=== PATIENT | male | born 1930 | race Caucasian/White ===

== ENCOUNTER → 2017-01-05 10:28 | Outpatient (CLI) | payer MEDICARE, BC | END | disposition home or self-care (01) | LOC: D.CT 10:28 | DX: R06.00 Dyspnea, unspecified (principal) ==

== ENCOUNTER → 2017-02-13 10:38 | Outpatient (CLI) | payer MEDICARE, BC ==
[2017-02-14 09:13] LABS: IMMUNOGLOBULIN E 1446 IU/mL (0-100)
== END | disposition home or self-care (01) ==
LOC: D.RT 10:38
PROVIDERS: Internal Medicine Pulmonary Disease
DX: J44.9 Chronic obstructive pulmonary disease, unspecified (principal)

== ENCOUNTER 2017-07-15 16:17 | Emergency (ER) | payer MEDICARE, BC | END 2017-07-15 19:25 | disposition home or self-care (01) | LOC: D.ER 16:17 | DX: J44.1 Chronic obstructive pulmonary disease with (acute) exacerbation (principal); I10 Essential (primary) hypertension; J45.909 Unspecified asthma, uncomplicated ==

== ENCOUNTER 2017-07-21 14:16 | Inpatient (IN) | payer MEDICARE, BC ==
[~2017-07-21] VITALS: Ht 180.3 cm; Wt 103.3 kg
[2017-07-21 15:28] LABS: BASOPHILS 0 % (0-2); EOSINOPHILS 0 % (0-7); HEMATOCRIT 45.6 % (42.0-54.0); HEMOGLOBIN 16.3 g/dL (13.5-17.5); IMMATURE GRANULOCYTES 0.5 % (0-5); LYMPHOCYTES 4.7 % (15-50); MCH 34.3 pg (26.0-34.0); MCHC 35.7 g/dL (31.0-37.0); MEAN PLATELET VOLUME 10.3 fL (7.4-10.4); MONOCYTES 1.6 % (2-11); NEUTROPHILS 93.2 % (40-80); PLATELET COUNT 177 10x3/uL (130-400); RBC 4.75 10x6/uL (4.20-6.10); RDW 13.6 % (11.5-14.5); WBC 17.6 10x3/uL (4.8-10.8)
[2017-07-21 16:16] LABS: PRO BNP 368 pg/mL (0-450); TROPONIN-I < 0.017 ng/mL (0.000-0.060)
[2017-07-21 16:19] LABS: ALBUMIN 3.5 g/dL (3.4-5.0); ANION GAP 20.9 mmol/L (8-16); BILIRUBIN - TOTAL 0.8 mg/dL (0.2-1.3); CALCIUM 8.6 mg/dL (8.5-10.1); CARBON DIOXIDE 17.8 mmol/L (21.0-32.0); CREATININE - SERUM 1.2 mg/dL (0.6-1.3); POTASSIUM - SERUM 4.7 mmol/L (3.5-5.1); PROTEIN - SERUM 7.2 g/dL (6.4-8.2)
[2017-07-21 18:21] LABS: APTT 27.4 SECONDS (22.8-39.4)
[2017-07-21 18:25] LABS: INR 1.03 (0.85-1.17); PROTIME 13.3 SECONDS (11.6-15.0)
[2017-07-21 20:00] VITALS: BP 124/81
[2017-07-21 23:03] VITALS: BP 124/81; BMI 31.4
[2017-07-21] MEDS ORDERED: ELIQUIS2.5 MG PO (23:44)
[2017-07-21] MEDS ORDERED: ZYLOPRIM100 MG PO (23:45)
[2017-07-21] MEDS ORDERED: LOPRESSOR25 MG PO (23:45)
[2017-07-21] MEDS ORDERED: BREO ELLIPTA 21 EACH (23:46)
[2017-07-21] MEDS ORDERED: AZELASTINE137 MCG/0. NASAL (23:48)
[2017-07-21] MEDS ORDERED: SINGULAIR10 MG PO (23:49)
[2017-07-21] MEDS ORDERED: LOSARTAN POTASS25 MG PO (23:50)
[2017-07-22 04:00] VITALS: BP 130/82
--- NOTE | 2017-07-22 07:53 | NUR ---
AMBULATED TO RESTROOM WITOUT DIFFICULTY. OXYGEN ON 2L VIA NC. ASSESSMENT PERFORMED PER FLOWSHEET. CALL LIGHT IN REACH, WILL CONTINUE WITH PLAN OF CARE.
[2017-07-22 08:21] VITALS: BP 131/73
[2017-07-22] MEDS ORDERED: PROAIR HFA8.5 GM INH (09:50)
[2017-07-22] MEDS ORDERED: IPRAT-ALBUT 0.5-3 ML UPD (09:50)
--- NOTE | 2017-07-22 11:30 | NUR ---
PLACED IN DROPLET ISOLATION PER ДМИТРИЙ, INFECTIOUS CONTROL RN.
[2017-07-22 12:00] VITALS: BP 115/70
--- NOTE | 2017-07-22 12:28 | NUR ---
TB SKIN TEST ADMINISTERED PER ORDER TO RIGHT FOREARM. BLEB CIRCLED AND BANDAID APPLIED LOOSELY TO SITE. IN DROPLET ISOLATION UNTIL NEGATIVE PRESSURE ROOM CAN BE OBTAINED.
--- NOTE | 2017-07-22 14:56 | NUR ---
TRANSFERRED TO ROOM 2240 AND PLACED IN NEGATIVE PRESSURE AT THIS TIME. ISOLATION PROCEDURES EXPLAINED TO PT AND HIS FAMILY MEMBER. VERBALIZED UNDERSTANDING.
[2017-07-22 15:20] VITALS: Ht 180.3 cm; Wt 103.3 kg
[2017-07-22 16:31] VITALS: BP 105/61
--- NOTE | 2017-07-22 17:00 | NUR ---
DAUGHTER EDUCATED ON IMPORTANCE OF FOLLOWING ISOLATION PROTOCOL, BUT REFUSES TO WEAR PROPER ATTIRE.
[2017-07-22 20:00] VITALS: BP 132/86
--- NOTE | 2017-07-22 20:00 | NUR ---
AWAKE,ALERT,NO COMPLIANTS VOICED.UP AD JEMMA TO BATHROOM. IV TO RIGHT AC INTACT WITHOUT REDNESS OR EDEMA NOTED.O2 @ 2L PER NC ON. NO DISTRESS NOTED. SR UP X 2. CL IN REACH.
[2017-07-23] VITALS: BP 139/79
--- NOTE | 2017-07-23 01:52 | NUR ---
EYES CLOSED. RESP EVEN AND UNALBORED. CL IN REACH.
[2017-07-23 04:00] VITALS: BP 133/89
[2017-07-23 04:40] LABS: BASOPHILS 0 % (0-2); EOSINOPHILS 0 % (0-7); HEMATOCRIT 41.6 % (42.0-54.0); HEMOGLOBIN 14.5 g/dL (13.5-17.5); IMMATURE GRANULOCYTES 0.2 % (0-5); MCH 33.6 pg (26.0-34.0); MCHC 34.9 g/dL (31.0-37.0); MCV 96.3 fL (80.0-100.0); MEAN PLATELET VOLUME 10.4 fL (7.4-10.4); MONOCYTES 2.1 % (2-11); NEUTROPHILS 90.7 % (40-80); PLATELET COUNT 156 10x3/uL (130-400); RBC 4.32 10x6/uL (4.20-6.10); RDW 13.7 % (11.5-14.5)
[2017-07-23 04:44] LABS: WBC 8.9 10x3/uL (4.8-10.8)
[2017-07-23 05:04] LABS: ANION GAP 15.4 mmol/L (8-16); BILIRUBIN - TOTAL 0.5 mg/dL (0.2-1.3); CALCIUM 8.6 mg/dL (8.5-10.1); CARBON DIOXIDE 22.2 mmol/L (21.0-32.0); CREATININE - SERUM 1.4 mg/dL (0.6-1.3); MAGNESIUM - SERUM 2.1 mg/dL (1.8-2.4); POTASSIUM - SERUM 4.6 mmol/L (3.5-5.1); PROTEIN - SERUM 6.6 g/dL (6.4-8.2)
--- NOTE | 2017-07-23 06:27 | NUR ---
AROUSES EASILY TO VERBAL STIMULI. NO COMPLAINTS VOICED. CL IN REACH
--- NOTE | 2017-07-23 07:09 | NUR ---
PT AWAKE BILATERAL EXPIRATORY WHEEZES AND CRACKLES TO ALL REGIONS OF LUNGS. SPO2 94. CURRENTLY ON 2 L NC. PT APPEARS TO BE IN NO RESPIRATORY DISTRESS. SPUTUM SAMPLE COLLECETED AND SENT TO THE LAB.
--- NOTE | 2017-07-23 07:49 | NUR ---
PT AWAKE AND ALERT. RESTING ON HIS BACK. REPORTS NO PAIN AT THIS TIME. ON 2L O2 VIA NC. LEFT FOREARM PERIPHERAL IV INFUSING NS AT 50ML/HR. NO REDNESS OR TENDERNESS NOTED AT IV SITE. PT WEARING GLASSES. SIDE RAIL UP X 2. URINAL WITHIN REACH. DENIES OTHER NEEDS AT THIS TIME.
[2017-07-23 08:08] VITALS: BP 141/67
--- NOTE | 2017-07-23 11:37 | NUR ---
PT REPORTS SOB. PT IN BED COUGHING AND HAVING DIFFICULTY BREATHING. O2 SAT 99% 2L NC. HEART RATE IN 100S. REPORTS NO PAIN. BLOOD IN SPUTUM NOTED. SPUTUM CULTURE COLLECTED. DR. BURGOS CAME IN THE ROOM. ORDERE CARDIAC ENZYME LAB AND EKG. WILL CONTINUE TO MONITOR.
--- NOTE | 2017-07-23 11:40 | NUR ---
PT EXPIERINCED CHEST TIGHTNESS AND EXPIRATORY WHEEZE TO THE LEFT APEX OF LUNG. ADMINISTERED RACEMIC EPINEPHRINE AND ATROVENT PER ORDER. SP02 97 ON 2L NC. PT STATES HE FEELS RELIEF DURING ADMINISTRATION. EXPECTORATE BLOOD TINGED COLLECTED DURING TX.
[2017-07-23 12:00] VITALS: BP 118/78
[2017-07-23 12:58] LABS: CKMB 1.1 U/L (0.0-3.6); CREATINE KINASE 50 UL (21-232)
[2017-07-23 12:59] LABS: TROPONIN-I < 0.017 ng/mL (0.000-0.060)
--- NOTE | 2017-07-23 14:02 | NUR ---
PT IS DOING A LOT BETTER. NO SOB NOTED AT THIS TIME. RESTING QUIETLY IN HIS BED. STATES THAT HE GOT UP TO THE BATHROOM AND BRUSH HIS TEETH. DENIES PAIN AT THIS TIME. NO OTHER NEEDS. WILL CONTINUE TO MONITOR.
[2017-07-23 15:05] VITALS: BP 113/61
--- NOTE | 2017-07-23 18:00 | NUR ---
PT RESTING COMFORTABLY. NO SOB NOTED AT THIS TIME.
[2017-07-23 18:11] LABS: ACID FAST SMEAR Negative (()); AFB SPECIMEN PROCESSING Concentration (())
[2017-07-23 19:08] LABS: CKMB 0.9 U/L (0.0-3.6); CREATINE KINASE 48 UL (21-232)
[2017-07-23 19:09] LABS: TROPONIN-I < 0.017 ng/mL (0.000-0.060)
[2017-07-23 20:00] VITALS: BP 134/90
[2017-07-24] VITALS: BP 138/88
[2017-07-24 00:07] LABS: CKMB 0.8 U/L (0.0-3.6); CREATINE KINASE 46 UL (21-232)
[2017-07-24 00:13] LABS: TROPONIN-I < 0.017 ng/mL (0.000-0.060)
[2017-07-24 04:00] VITALS: BP 155/99
[2017-07-24 08:05] VITALS: BP 145/82
--- NOTE | 2017-07-24 09:38 | NUR ---
Patient Name: KD MARCIAL Admission Status: Elective Accout number: [id number] Admission Date: 07-21-2017 : 1930 Admission Diagnosis: Attending: Inderjit Robledo Current LOS: 3 Anticipated DC Date: 07-28-2017 Planned Disposition: Home with Home Health Primary Insurance: MEDICARE A & B Discharge Planning Comments: CM MET WITH PATIENT AND DAUGHTER (ABI) REGARDING D/C NEEDS AND PLANS. PATIENTS DAUGHTER STATED SHE WILL DRIVE HIM HOME AT DISCHARGE. PATIENT HAS 1 STEP TO ENTER HOME AND 2 STEPS W/RAILS INSIDE. PATIENT IS INDEPENDENT WITH HIS CARE AND HAS A WALKER, WHEELCHAIR, AND CANE (USES). PATIENTS PCP IS DR. ROBLEDO AND PHARMACY IS [facility]. PATIENTS DAUGHTER SIGNED THE [facility] FOR [facility] IF NEEDED AT DISCHARGE. DAUGHTER AND PATIENT WANTS TO SEE IF DR. ROBLEDO WANTS HIM TO HAVE HOME HEALTH. PCP DR. MEENA KRAUSE IN [facility]. [phone] ABI (DAUGHTER) [phone] Preparation Plant Repairer: Angelique Gage Is the patient Alert and Oriented? Yes 0 * How many steps to enter\exit or inside your home? 3 0 * PCP DR. ROBLEDO 0 * Pharmacy [facility] 0 * Preadmission Environment Home Alone 0 * ADLs Independent 0 * Equipment Cane Walker Wheelchair 0 * Other Equipment USES CANE THE MOST 0 * List name and contact numbers for known caregivers / representatives who currently or will assist patient after discharge: ABI (DAUGHTER) [phone] 0 * Community resources currently utilized None 0 * Additional services required to return to the preadmission environment? Yes 0 * Can the patient safely return to the preadmission environment? Yes 0 * Has this patient been hospitalized within the prior 30 days at any hospital? No 0 Grand Total: 0
[2017-07-24 12:28] VITALS: BP 124/67
--- NOTE | 2017-07-24 12:46 | NUR ---
PERIPHERAL IV ON LEFT AC DICONTINUED. REMOVED WITH CATHETER INTACT. NEW 20 GAUGE IV STARTED ON LEFT FOREARM X 1 ATTEMP. PT TOLERATED WELL. PT EATING LUNCH AT THIS TIME. NO SOB NOTED. NO OTHER NEEDS AT THIS TIME.
[2017-07-24 13:16] LABS: FUNGUS STAIN Final report (())
--- NOTE | 2017-07-24 14:42 | NUR ---
NUTRITION F/U CHART REVIEWED, PT VISIT. TOLERATING AHA DIET WITH 100% INTAKE LUNCH. WILL CONTINUE TO PROVIDE DIET, MONITOR INTAKE. RD FOLLOWING
[2017-07-24 16:00] VITALS: BP 122/67
--- NOTE | 2017-07-24 18:20 | NUR ---
PT RESTING COMFORTABLY IN BED. REPORTS NO PAIN. NO SOB NOTED AT THIS TIME.
[2017-07-24 19:11] LABS: ACID FAST SMEAR Negative (()); AFB SPECIMEN PROCESSING Concentration (())
[2017-07-24 20:00] VITALS: BP 121/65
--- NOTE | 2017-07-24 20:15 | NUR ---
PATIENT RESTING IN BED AND DENIES NEEDS AT THIS TIME. ADMINSITERED MEDS PER ORDERS AND COMPLETED ASSESSMENT. BED IN LOWEST POSITION AND CALL LIGHT WITHIN REACH. ENCOURAGED THE PATIENT TO CALL IF HE HAS NEEDS.
[2017-07-25 00:55] VITALS: BP 143/72
[2017-07-25 03:52] LABS: BASOPHILS 0 % (0-2); EOSINOPHILS 0 % (0-7); HEMATOCRIT 39.2 % (42.0-54.0); HEMOGLOBIN 13.6 g/dL (13.5-17.5); IMMATURE GRANULOCYTES 0.4 % (0-5); LYMPHOCYTES 5.1 % (15-50); MCH 33.4 pg (26.0-34.0); MCHC 34.7 g/dL (31.0-37.0); MCV 96.3 fL (80.0-100.0); MEAN PLATELET VOLUME 10.3 fL (7.4-10.4); MONOCYTES 5.5 % (2-11); PLATELET COUNT 156 10x3/uL (130-400); RBC 4.07 10x6/uL (4.20-6.10); RDW 13.8 % (11.5-14.5); WBC 10.6 10x3/uL (4.8-10.8)
[2017-07-25 04:09] VITALS: BP 137/69
[2017-07-25 04:18] LABS: ANION GAP 12.7 mmol/L (8-16); CALCIUM 8.3 mg/dL (8.5-10.1); CARBON DIOXIDE 23.1 mmol/L (21.0-32.0); CREATININE - SERUM 1.2 mg/dL (0.6-1.3); POTASSIUM - SERUM 3.8 mmol/L (3.5-5.1)
--- NOTE | 2017-07-25 07:30 | NUR ---
RECEIVED REPORT FROM [employer]I LIFT MECHANIC NURSE. WALKING ROUNDS PREFORMED. ASSESSMENT PER FLOW SHEET. PT SITTING UP ON SIDE OF BED. REPORTS NO NEEDS AT THIS TIME. CALL LIGHT AT SIDE. PT IN AIRBORN ISOLATION. ALL PRECAUTIONS ABIDED BY.
--- NOTE | 2017-07-25 07:45 | NUR ---
PT ASSESSMENT COMPLETE AWAKE AND ALERT ORINTED X 3 LUNGS WITH NOTED WHEEZING BILATERALLY COUGH WITH POSITIVE SPUTUM PRODUCTION. CALL LIGHT IN REACH SEE FLOWSHEET FOR COMPLETE ASSESSMENT. REMAINS IN AIRBORNE ISOLATION FOR POSSIBLE TB.
[2017-07-25 08:10] VITALS: BP 149/73
--- NOTE | 2017-07-25 11:30 | NUR ---
PT COMPLAINS OF TV NOT WORKING CALL PLACED FOR MAINTANCE TO FIX NON WORKING TV.
[2017-07-25 12:11] LABS: HISTOPLASMA GAL MANNAN AG SER 0.12 ng/mL (0.00-0.49)
[2017-07-25 12:40] VITALS: BP 136/70
[2017-07-25 15:57] VITALS: BP 122/69
[2017-07-25 16:09] LABS: CRYPTOCOCCUS AG - SERUM Negative (Negative)
--- NOTE | 2017-07-25 17:00 | NUR ---
REPORT CALLED TO DANIEL ON [facility] FOR TRANSFER TO ROOM 210
--- NOTE | 2017-07-25 17:15 | NUR ---
Pt received from [facility] 6Scan on droplet isolation pending continued results of TB testing. Family member at bedside, nurse introduced self and provided requested items such as ice water, empty cup to spit in, etc. Spoke with [employer] who will set up for shower, take urinal. Pt is alert and oriented, very [place], friendly and coopetative. Reviewed isolation policy and procedure with family memeber. Pt denies pain, denies needs at this time, is able to demonstrate proper use of call light.
--- NOTE | 2017-07-25 17:36 | NUR ---
PT TRANSFERED TO 2101 PER BED PER ORDER GUITAR MAKER HAND FOR NON WORKING TV. FAMILY AT SIDE. PT EXCITED ABOUT HAVING WORKING TV.
[2017-07-25 18:08] LABS: ACID FAST SMEAR Negative (()); AFB SPECIMEN PROCESSING Concentration (())
[2017-07-25 19:00] VITALS: BP 139/71
[2017-07-26] VITALS: BP 140/71
[2017-07-26 04:00] VITALS: BP 135/76
--- NOTE | 2017-07-26 08:13 | NUR ---
Pt alert and oriented with no c/o pain. Very [place] with bilat hearing aids present. Continues contact ISO until receiving new orders as sputum cultures are negative. Large container of ice water taken to pt upon AM assessment as previously requested. Continues controlled a-fib on moniter. Pt is ambulatory in room (up ad caleb) and has small amt of blood-tinged sputum in cup on table. Call light is in reach, and pt is able to make needs known, states "I've felt really good since I came over here yesterday and even got that shower. Thank you."
[2017-07-26 08:58] VITALS: BP 141/85
--- NOTE | 2017-07-26 10:41 | NUR ---
Pt sitting with family member, Dr. Hutchison present in room, remains on ISO until further orders. Pt has no current c/o pain and no s/s of other distress, denies needs at this time. Family member states "He looks and feels so much better today. Thank you."
[2017-07-26 11:53] VITALS: BP 133/73
--- NOTE | 2017-07-26 12:48 | NUR ---
Peripheral IV to left forearm near wrist leaking; new IV started to same arm several inches above x1 attempt with 22g. Old IV removed with cath tip intact, bleeding controlled. No c/o pain, and no s/s distress. Family remains at bedside, and pt remains on ISO.
--- NOTE | 2017-07-26 14:19 | NUR ---
Pt sleeping, awoke when nurse entered room to administer meds, IV patent, antibiotics infused without difficulty. No c/o pain, no distress. Family remains at bedside, remains on isolation at this time. Call light in reach, bed in low position.
--- NOTE | 2017-07-26 14:54 | NUR ---
PATIENT REMAINS IN ISOLATION. DENIES NEEDS AT THIS TIME. NO DISTRESS.
[2017-07-26 16:50] VITALS: BP 116/75
--- NOTE | 2017-07-26 17:00 | NUR ---
Pt sitting in chair beside bed-dinner tray set up. Family member has left. Pt is alert and oriented with no c/o pain, no s/s distress.
--- NOTE | 2017-07-26 19:41 | NUR ---
RECEIVED REPORT, WILL ASSUME CARE OF PT, PT DENIES ANY NEEDS AT THIS TIME, BED IS LOW, SRX2, WILL CONTINUE PLAN OF CARE
[2017-07-26 20:00] VITALS: BP 134/78
[2017-07-27] VITALS: BP 165/97
--- NOTE | 2017-07-27 00:06 | NUR ---
CALL LIGHT IN REACH, WILL CONTINUE WITH PLAN OF CARE.
[2017-07-27 04:00] VITALS: BP 135/93
--- NOTE | 2017-07-27 04:04 | NUR ---
ASSESSMENT COMPLETE, SEE FLOWSHEET, PT DENIES ANY NEEDS, BED IS LOW, SRX2, CALL LIGHT IN REACH, WILL CONTINUE PLAN OF CARE
[2017-07-27 04:57] LABS: BASOPHILS 0 % (0-2); EOSINOPHILS 0 % (0-7); HEMATOCRIT 39.7 % (42.0-54.0); HEMOGLOBIN 13.8 g/dL (13.5-17.5); IMMATURE GRANULOCYTES 0.6 % (0-5); LYMPHOCYTES 9.8 % (15-50); MCH 33.3 pg (26.0-34.0); MCHC 34.8 g/dL (31.0-37.0); MCV 95.9 fL (80.0-100.0); MEAN PLATELET VOLUME 10.9 fL (7.4-10.4); MONOCYTES 6.7 % (2-11); NEUTROPHILS 82.9 % (40-80); PLATELET COUNT 150 10x3/uL (130-400); RBC 4.14 10x6/uL (4.20-6.10); RDW 14.2 % (11.5-14.5); WBC 8.3 10x3/uL (4.8-10.8)
[2017-07-27 05:17] LABS: ALBUMIN 2.9 g/dL (3.4-5.0); BILIRUBIN - TOTAL 0.5 mg/dL (0.2-1.3); CALCIUM 8.6 mg/dL (8.5-10.1); CARBON DIOXIDE 24.7 mmol/L (21.0-32.0); CREATININE - SERUM 1.3 mg/dL (0.6-1.3); POTASSIUM - SERUM 3.7 mmol/L (3.5-5.1); PROTEIN - SERUM 6.1 g/dL (6.4-8.2)
[2017-07-27 08:00] VITALS: BP 137/80
--- NOTE | 2017-07-27 08:38 | NUR ---
PT IS ON DROBLET ISOLATION. HARD OF HEARING. TELEMERTY SHOWS CAF AT 98. LEFT ARM FOREARM SL. UP IN BEDSIDE CHAIR. DENIES ANY NEEDS.CALL LIGHT IN REACH WITH SR UP.WILL MONITOR
--- NOTE | 2017-07-27 09:51 | NUR ---
IN DROPLET ISOLATION AT PRESENT TIME. DENIES NEEDS OR SHORTNESS OF BREATH. WAS UP TO CHAIR FOR BREAKFAST. WILL CPOC.
[2017-07-27 12:00] VITALS: BP 128/65
[2017-07-27 12:09] LABS: FUNGUS STAIN Final report (())
[2017-07-27 12:09] LABS: FUNGUS STAIN Final report (())
[2017-07-27 16:00] VITALS: BP 137/79
--- NOTE | 2017-07-27 18:30 | NUR ---
UP IN BEDSIDE CHAIR. DENIES ANY NEEDS. TELEMERTRY SHOWS CAF. WILL MONITOR
--- NOTE | 2017-07-27 19:20 | NUR ---
RECEIVED REPORT, WILL ASSUME CARE OF PT, PT IS ALERT/ORINTATED, DENIES ANY NEEDS, BED IS LOW, SRX2, CALL LIGHT IN REACH, WILL CONTINUE PLAN OF CARE
[2017-07-27 21:15] VITALS: BP 137/70
--- NOTE | 2017-07-28 00:10 | NUR ---
LEAD MANUFACTURING ENGINEER AT BED SIDE TO OBTAIN VITALS.
--- NOTE | 2017-07-28 01:22 | NUR ---
PT SLEEPING, NO DISTRESS NOTICED, BED IS LOW, SRX2, CALL LIGHT IN REACH, WILL CONTINUE PLAN OF CARE
[2017-07-28 01:29] VITALS: BP 127/85
--- NOTE | 2017-07-28 03:08 | NUR ---
PT RESTING IN BED WITH NO DISTRESS. RESPS EVEN/NONLABORED. MONITOR AND CPOC. CALL LIGHT IN REACH. BED LOW.
[2017-07-28 04:27] LABS: BASOPHILS 0 % (0-2); EOSINOPHILS 0.1 % (0-7); HEMATOCRIT 39.5 % (42.0-54.0); HEMOGLOBIN 13.9 g/dL (13.5-17.5); IMMATURE GRANULOCYTES 0.7 % (0-5); LYMPHOCYTES 11.7 % (15-50); MCH 33.6 pg (26.0-34.0); MCHC 35.2 g/dL (31.0-37.0); MCV 95.4 fL (80.0-100.0); MEAN PLATELET VOLUME 10.7 fL (7.4-10.4); MONOCYTES 6.4 % (2-11); NEUTROPHILS 81.1 % (40-80); PLATELET COUNT 145 10x3/uL (130-400); RBC 4.14 10x6/uL (4.20-6.10); RDW 14.1 % (11.5-14.5); WBC 7.7 10x3/uL (4.8-10.8)
[2017-07-28 04:30] VITALS: BP 139/104
[2017-07-28 04:39] LABS: ALBUMIN 2.8 g/dL (3.4-5.0); ANION GAP 12.3 mmol/L (8-16); BILIRUBIN - TOTAL 0.62 mg/dL (0.2-1.3); CALCIUM 8.1 mg/dL (8.5-10.1); CARBON DIOXIDE 24.8 mmol/L (21.0-32.0); CREATININE - SERUM 1.3 mg/dL (0.6-1.3); POTASSIUM - SERUM 4.1 mmol/L (3.5-5.1); PROTEIN - SERUM 6.1 g/dL (6.4-8.2)
--- NOTE | 2017-07-28 07:00 | NUR ---
RECEIVED REPORT. ASSUMED CARE OF PATIENT. CALL LIGHT WITHIN REACH. PATIENT SITTING IN CHAIR AT BEDSIDE. DENIES NEEDS. DENIES PAIN. NO DISTRESS. RESP EVEN AND UNLABORED.
[2017-07-28 08:00] VITALS: BP 142/89
--- NOTE | 2017-07-28 10:00 | NUR ---
PATIENT REMOVED FROM ISOLATION AT THIS TIME.
--- NOTE | 2017-07-28 10:52 | NUR ---
Nutrition Follow Up: Pt is eating 96% meal avg on an AHA diet. +BM 07/27/17. Wt stable. Labs reviewed. Meds noted including Prednisone. Rec continue current diet. RD following.
[2017-07-28 12:00] VITALS: BP 116/69
--- NOTE | 2017-07-28 13:45 | NUR ---
PATIENT LEFT UNIT VIA WHEELCHAIR FOR CT OF CHEST. NO DISTRESS UPON LEAVING UNIT.
--- NOTE | 2017-07-28 14:15 | NUR ---
PATIENT RETURNED TO UNIT VIA WHEELCHAIR FROM CT. NO DISTRESS. ASSISTED PATIENT TO CHAIR AT BEDSIDE.
[2017-07-28 16:00] VITALS: BP 124/68
--- NOTE | 2017-07-28 18:24 | NUR ---
PATIENT LYING IN BED, RESP EVEN AND UNLABORED. DENIES NEEDS. CALL LIGHT WITHIN REACH. NO DISTRESS.
[2017-07-28 19:00] VITALS: BP 148/84
--- NOTE | 2017-07-28 20:42 | NUR ---
PT RESTING COMFORTABLY, EASILY ROUSABLE TO VERBAL STIMULI, DENIES ANY NEEDS. CONTINUE TO MONITOR PT CLOSELY. BED LOW, CALL LIGHT IN REACH, SIDE RAILS X 2, HOB 20 DEGREES. PT DOES HAVE A SMALL AMOUNT OF BLOODY SPUTUM IN A CUP AT BEDSIDE, BUT STATES IT IS INFREQUENT AT THIS TIME.
[2017-07-29 00:46] VITALS: BP 135/81
--- NOTE | 2017-07-29 03:54 | NUR ---
PT LYING ON RIGHT SIDE, RESTING COMFORTABLY, EASILY ROUSABLE TO VERBAL STIMULI. CONTINUE TO MONITOR CLOSELY. BED LOW, CALL LIGHT IN REACH, SIDE RAILS X 2, HOB FLAT.
[2017-07-29 04:23] LABS: BASOPHILS 0 % (0-2); EOSINOPHILS 0.3 % (0-7); HEMATOCRIT 40.3 % (42.0-54.0); IMMATURE GRANULOCYTES 0.8 % (0-5); LYMPHOCYTES 12.9 % (15-50); MCH 33.5 pg (26.0-34.0); MCHC 34.7 g/dL (31.0-37.0); MCV 96.4 fL (80.0-100.0); MEAN PLATELET VOLUME 10.4 fL (7.4-10.4); MONOCYTES 6.8 % (2-11); NEUTROPHILS 79.2 % (40-80); PLATELET COUNT 136 10x3/uL (130-400); RBC 4.18 10x6/uL (4.20-6.10); RDW 14.4 % (11.5-14.5); WBC 7.5 10x3/uL (4.8-10.8)
[2017-07-29 05:04] LABS: CARBON DIOXIDE 26.9 mmol/L (21.0-32.0); CREATININE - SERUM 1.3 mg/dL (0.6-1.3)
[2017-07-29 05:12] VITALS: BP 152/99
[2017-07-29 06:16] LABS: ANION GAP 9.9 mmol/L (8-16); POTASSIUM - SERUM 3.8 mmol/L (3.5-5.1)
--- NOTE | 2017-07-29 07:42 | NUR ---
ASSESSMENT DONE. DENIES ANY NEEDS AT THIS TIME.
[2017-07-29 08:32] VITALS: BP 105/71
[2017-07-29 11:15] LABS: FUNGUS MYCOLOGY CULTURE Preliminary report (())
[2017-07-29] MEDS ORDERED: CLEOCIN HCL150 MG PO (11:37)
[2017-07-29] MEDS ORDERED: PROMETHAZINE W473 M1 PO (11:38)
[2017-07-29] MEDS ORDERED: FLORAJEN3 CAPS460 MG PO (11:38)
[2017-07-29] MEDS ORDERED: MUCINEX DM ER1 EAC1 PO (11:38)
[2017-07-29] MEDS ORDERED: BENZONATATE200 MG PO (11:38)
[2017-07-29] MEDS ORDERED: PREDNISONE20 MG PO (11:40)
--- NOTE | 2017-07-29 11:59 | NUR ---
PT SITTING UP IN BED RESTING QUIETLY WATCHING TV. PT DENIES ANY CURRENT PAIN OR NEEDS AT THIS TIME. CL IN REACH. WILL CTM.
[2017-07-29 12:34] VITALS: BP 132/82
--- NOTE | 2017-07-29 13:30 | NUR ---
UP IN BED VISITING WITH FAMILY - DENIES ANY NEEDS AT THIS TIME
--- NOTE | 2017-07-29 15:19 | NUR ---
Patient Name: KD MARCIAL Encounter No: [id number] : 1930 Primary Insurance: MEDICARE A & B Anticipated DC Date: 07-29-2017 Planned Disposition: Home DCP follow-up note: CM RECEIVED DISCHARGE ORDER. CM MET WITH PT AND DAUGHTER IN ROOM TO DISCUSS DISCHARGE NEEDS AND PLANNING. CM DISCUSSED AVAILABILITY OF HOME HEALTH, REHAB SERVICES AND MEDICAL EQUIPMENT. PT DENIES DISCHARGE NEEDS, REPORTS ASSISTANCE OF HIS ADULT CHIDREN NEEDED. DAUGHTER TO TRANSPORT HOME AT DISCHARGE. CM INFORMED PT THAT DR. ROBLEDO DID NOT PROVIDE ANY HOME HEALTH OR MEDICAL EQUIPMENT ORDERS AND CM EXPLAINED HOW TO CONTACT HIS DOCTOR IN OFFICE IF PT FEELS HE NEEDS HOME HEALTH AFTER GETTING HOME; CM DISCUSSED HOW TO ACCESS REHAB SERVICES IF NEEDED AFTER DISCHARGE HOME. PT REPORTED UNDERSTANDING. IMPORTANT MESSAGE FROM MEDICARE PROVIDED AND EXPLAINED. Ajay Westfall, CASE MANAGEMENT
--- NOTE | 2017-07-29 15:53 | NUR ---
DISCHARGE TEACHING PROVIDED AND PAPERS SIGNED. CALLED FOR WHEELCHAIR PT VERBALIZED UNDERSTANDING AND DENIES ANY FURTHER NEEDS OR QUESTIONS.
[2017-07-30 15:21] LABS: FUNGUS MYCOLOGY CULTURE Preliminary report (())
[2017-07-31 12:15] LABS: FUNGUS MYCOLOGY CULTURE Preliminary report (())
== END 2017-07-29 15:58 | disposition home or self-care (01) | DRG 178 ==
LOC: D.LAB 14:16 → D.ER 14:16 → D.CT 14:30 → D.MS 18:37 → D.M2 18:37 → D.MS 07-22 14:29 → D.M2 07-25 16:53
PROVIDERS: Emergency Medicine; Family Medicine; Student in an Organized Health Care Education/Training Program; ADMIT Family Medicine
DX: J85.2 Abscess of lung without pneumonia (principal); J44.1 Chronic obstructive pulmonary disease with (acute) exacerbation; I10 Essential (primary) hypertension; I48.2 Chronic atrial fibrillation; Z79.01 Long term (current) use of anticoagulants; Z95.1 Presence of aortocoronary bypass graft; B96.89 Other specified bacterial agents as the cause of diseases classified elsewhere; R53.1 Weakness; K21.9 Gastro-esophageal reflux disease without esophagitis; H91.90 Unspecified hearing loss, unspecified ear; M10.9 Gout, unspecified; E78.00 Pure hypercholesterolemia, unspecified; E55.9 Vitamin D deficiency, unspecified; Z88.1 Allergy status to other antibiotic agents

== ENCOUNTER → 2017-08-06 14:40 | Outpatient (CLI) | payer MEDICARE, BC ==
[2017-07-22 15:20] VITALS: BMI 31.3
[~2017-08-06 14:40] MED LIST: AZELASTINE137 MCG/0. NASAL; BENZONATATE200 MG PO; BREO ELLIPTA 21 EACH; CLEOCIN HCL150 MG PO; ELIQUIS2.5 MG PO; FLORAJEN3 CAPS460 MG PO; IPRAT-ALBUT 0.5-3 ML UPD; LOPRESSOR25 MG PO; LOSARTAN POTASS25 MG PO; MUCINEX DM ER1 EAC1 PO; PREDNISONE20 MG PO; PROAIR HFA8.5 GM INH; PROMETHAZINE W473 M1 PO; SINGULAIR10 MG PO; ZYLOPRIM100 MG PO
== END | disposition home or self-care (01) ==
LOC: D.CT 14:40
DX: J85.2 Abscess of lung without pneumonia (principal)

== ENCOUNTER 2017-09-06 16:13 | Emergency (ER) | payer MEDICARE, BC ==
[2017-07-22 15:20] VITALS: BMI 31.3
[2017-09-06 16:37] LABS: APPEARANCE CLEAR (CLEAR); BILIRUBIN NEGATIVE (NEGATIVE); COLOR YELLOW (YELLOW); GLUCOSE NEGATIVE (NEGATIVE); KETONE SMALL mg/dL (NEGATIVE); NITRITE NEGATIVE (NEGATIVE); PROTEIN NEGATIVE (NEGATIVE); SPECIFIC GRAVITY 1.015 (1.005-1.020); UROBILINOGEN NORMAL (NORMAL)
[2017-09-06 17:06] LABS: BASOPHILS 0.2 % (0-2); EOSINOPHILS 2.4 % (0-7); HEMATOCRIT 44.4 % (42.0-54.0); HEMOGLOBIN 15.2 g/dL (13.5-17.5); IMMATURE GRANULOCYTES 0.3 % (0-5); LYMPHOCYTES 15.5 % (15-50); MCH 33.2 pg (26.0-34.0); MCHC 34.2 g/dL (31.0-37.0); MCV 96.9 fL (80.0-100.0); MEAN PLATELET VOLUME 10.2 fL (7.4-10.4); NEUTROPHILS 73.6 % (40-80); RBC 4.58 10x6/uL (4.20-6.10); RDW 14.3 % (11.5-14.5); WBC 8.9 10x3/uL (4.8-10.8)
[2017-09-06 17:07] LABS: PLATELET COUNT 178 10x3/uL (130-400)
[2017-09-06 17:19] LABS: ALBUMIN 3.5 g/dL (3.4-5.0); ANION GAP 14.3 mmol/L (8-16); BILIRUBIN - TOTAL 1.24 mg/dL (0.2-1.3); CALCIUM 9.2 mg/dL (8.5-10.1); CARBON DIOXIDE 25.9 mmol/L (21.0-32.0); CREATININE - SERUM 1.3 mg/dL (0.6-1.3); POTASSIUM - SERUM 4.2 mmol/L (3.5-5.1); PROTEIN - SERUM 7.7 g/dL (6.4-8.2)
== END 2017-09-06 18:20 | disposition home or self-care (01) ==
LOC: D.ER 16:13
PROVIDERS: Emergency Medicine
DX: R10.9 Unspecified abdominal pain (principal); I10 Essential (primary) hypertension; J44.9 Chronic obstructive pulmonary disease, unspecified

== ENCOUNTER → 2017-09-23 14:06 | Outpatient (CLI) | payer MEDICARE, BC ==
[2017-07-22 15:20] VITALS: BMI 31.3
== END | disposition home or self-care (01) ==
LOC: D.CT 14:06
DX: J85.2 Abscess of lung without pneumonia (principal)

== ENCOUNTER → 2017-12-02 13:45 | Outpatient (CLI) | payer MEDICARE, BC ==
[2017-07-22 15:20] VITALS: BMI 31.3
== END | disposition home or self-care (01) ==
LOC: D.CT 13:45
DX: J18.9 Pneumonia, unspecified organism (principal)

== ENCOUNTER 2018-06-05 10:45 | Observation (INO) | payer MEDICARE, BC ==
[~2018-06-05] VITALS: Ht 180.3 cm; Wt 107.3 kg
[2018-06-05] VITALS (10 sets, daily range): BP systolic 98–131; BP diastolic 57–88; BMI 33.4
--- NOTE | ~2018-06-05 | HEMODYNAMI ---
PATIENT:KD MARCIAL MEDICAL RECORD: [id number] : 32 LOCATION:[facility] D2123 ADMISSION DATE: 06/05/18 Generatedon:06/07/20189:35 Patient name: KD MARCIAL Patient #: [id number] SSN: : 1930 Date of study: 06/07/2018 Page: Of Hemodynamic Procedure Report Patient Data Patient Demographics Procedure consent was obtained First Name: KD Gender: Male Last Name: ANIKET : 1930 Middle Initial: A Age: 87 year(s) Patient #: [id number] Race: Unknown Additional ID: [id number] Contact details Address: [address] [place] [address] State: [place] City: [place] Zip code: [address] Past Medical History Allergies Allergen Reaction Date Comments Reported Other allergy 06/07/2018 [facility] Admission Admission Data Admission Date: 06/05/2018 Admission Time: 15:58 Admit Source: Other Room #: D.2123 Lab Results Lab Result Date: 06/07/2018 Lab Result Time: 4:06 Biochemistry Name Units Result Min Max BUN mg/dl 25 --(----)-* 7 18 Creatinine mg/dl 1.2 --(---*)-- 0.6 1.3 CBC Name Units Result Min Max Hematocrit % 42.1 --(*---)-- 42 54 Hemoglobin g/dl 14.4 --(*---)-- 13.5 17.5 Procedure Procedure Types Cath Procedure Diagnostic Procedure LHC LHC w/Coronaries w/Grafts Aortic Root Angiography Sedation Charges Moderate Sedation up to 15 minutes Procedure Description Procedure Date Procedure Date: 06/07/2018 Procedure Start Time: 9:12 Procedure End Time: 9:34 Procedure Staff Name Function Randy Stewart MD Performing Physician Preston Bowers RT Monitor April Blum RT Scrub Yamile Bustillo RN Nurse Procedure Data Cath Procedure Fluoroscopy Diagnostic fluoroscopy Total fluoroscopy Time: 4.8 time: 4.8 min min Diagnostic fluoroscopy Total fluoroscopy dose: 917 dose: 917 mGy mGy Contrast Material Contrast Material Type Amount (ml) Isovue 300 95 Entry Location Entry Primary Successful Side Size Upsize Upsize Entry Closure Succes sful Closure Location (Fr) 1 (Fr) 2 (Fr) Remarks Device Remarks Femoral Right 5 Fr Exoseal artery Estimated blood loss: 5 ml Diagnostic catheters Device Type Used For End Catheter Placement MULTIPACK JL 4.0 5Fr Procedure catheter DIAGNOSTIC AR MOD 5Fr Procedure Catheter ([id number]) DIAGNOSTIC IM 5Fr Procedure catheter ([id number]) MULTIPACK 3DRC 5Fr Procedure catheter MULTIPACK Pigtail 5 Fr Procedure catheter Procedure Complications No complications Procedure Medications Medication Administration Route Dosage Oxygen NC 2 l/min Lidocaine 2% 20 Heparin Flush Bag added to field 2 bags (1000units/500ml NS) 0.9% NaCl 100 ml/hr Versed I.V. 1 mg Fentanyl I.V. 50 mcg Versed I.V. 1 mg Fentanyl I.V. 50 mcg Hemodynamics Rest HGB: 14.4 (g/dl) Heart Rate: 88 (bpm) Pressure Samples Time Site Value (mmHg) Purpose Heart Use Rate(bpm) 9:25 LV 140/-2,22 Snapshot 83 9:26 AO 142/77(103) Pullback 87 9:26 LV 150/-1,20 Pullback 87 Gradients Valve Time Site 1 Site 2 Mean SEP/DFP Peak To Heart Use (mmHg) (sec/min) Peak Rate (mmHg) (bpm) Aortic 9:26 LV AO 10 18 8 87 150/-1,20 142/77(103) Calculations Valve P-P Mean Valve Index Valve Source Name Gradient Area Flow (cm2) Aortic 8 10 8 10 Snapshots Pre Cath Intra NCS Post Cath Vital Signs Time Heart Resp SPO2 etCO2 NIBP (mmHg) Rhythm Pain Sedation Rate (ipm) (%) (mmHg) Status Level (bpm) 8:55:26 74 24 96 0 120/82(107) NSR 0 (11) 10(A) , No pain 8:59:34 72 22 95 27.2 131/79(113) NSR 0 (11) 10(A) , No pain 9:03:44 80 28 94 14.2 131/80(104) NSR 0 (11) 10(A) , No pain 9:07:53 80 15 97 21.7 142/83(108) NSR 0 (11) 10(A) , No pain 9:12:03 81 13 98 19.4 143/87(114) NSR 0 (11) 9(A) , No pain 9:16:15 84 13 95 20 142/86(113) NSR 0 (11) 9(A) , No pain 9:20:27 84 13 94 23.2 141/83(108) NSR 0 (11) 9(A) , No pain 9:24:35 90 14 94 11.2 142/90(113) NSR 0 (11) 9(A) , No pain 9:29:52 82 15 94 23.2 133/96(119) NSR 0 (11) 10(A) , No pain 9:34:00 90 21 93 20.2 138/87(118) NSR 0 (11) 10(A) , No pain Medications Time Medication Route Dose Verified Delivered Reason Notes Effec tiveness by by 8:59:29 Oxygen NC 2 Randy Buffie Per l/min Terry Bustillo RN physician 8:59:46 Lidocaine 2% 20ml Randy Randy for local vial Terry Stewart MD anesthetic 8:59:52 Heparin Flush added 2 Randy Randy used for Bag to bags Terry Stewart MD procedure (1000units/500ml field NS) 9:00:16 0.9% NaCl 100 Randy Buffie Per ml/hr Terry Bustillo RN physician 9:06:55 Versed I.V. 1 mg Randy Buffie for Terry Bustillo RN sedation 9:07:01 Fentanyl I.V. 50 Randy Buffie for mcg Terry Bustillo RN sedation 9:12:19 Versed I.V. 1 mg Randy Buffie for Terry Bustillo RN sedation 9:12:23 Fentanyl I.V. 50 Randy Buffie for mcg Terry Bustillo RN sedation Procedure Log Time Note 8:40:52 Informed consent obtained and on chart 8:41:00 Admit Source: Other 8:41:14 Diagnostic Cath status Elective 8:41:15 Time tracking: Regular hours (M-F 7:00 - 5:00) 8:41:19 Plan of Care:Hemodynamics will remain stable., Cardiac rhythm will remain stable., Comfort level will be maintained., Respiratory function will remain adequate., Patient/ family verbilizes understanding of procedure., Procedure tolerated without complication., Recovers from procedure without complications.. 8:41:22 Yamile Bustillo RN sent for patient. Start room use. 8:41:37 H&P Date Dictated: 06/05/2018 Within 30 days and on chart.. 8:41:42 Patient NPO since Midnight. 8:41:54 Patient allergic to Other allergyPCN 8:49:01 Patient received from Med II to CCL 2 Alert and oriented. Tansferred to table in Supine position. 8:49:02 Warm blankets applied, and mitali hugger turned on for patient comfort. 8:49:02 Correct patient and procedure confirmed by team. 8:49:03 ECG and BP/O2 sat monitors applied to patient. 8:49:04 Pre-procedure instructions explained to patient. 8:49:04 Pre-op teaching completed and patient verbalized understanding. 8:49:06 Family in patients room. 8:54:19 Vital chart was started 8:59:29 Oxygen 2 l/min NC was administered by Yamile Bustillo RN; Per physician; 8:59:46 Lidocaine 2% 20ml vial was administered by Randy Stewart MD; for local anesthetic; 8:59:52 Heparin Flush Bag (1000units/500ml NS) 2 bags added to field was administered by Randy Stewart MD; used for procedure; 9:00:16 0.9% NaCl 100 ml/hr was administered by Yamile Bustillo RN; Per physician; 9:01:25 Baseline sample Acquired. 9:01:34 Rhythm: atrial fibrillation 9:01:35 Full Disclosure recording started 9:01:37 Is the patient allergic to Iodine/contrast media? No. 9:01:39 Is patient on blood thinner?Yes 9:01:40 Patient diabetic? No. 9:01:43 Previous problem with sedation/anesthesia? No ? 9:01:46 Snore? Yes 9:01:47 Sleep apnea? No 9:01:48 Deviated septum? No 9:01:48 Opens mouth fully? Yes 9:01:49 Sticks out tongue? Yes 9:01:53 Airway obstruction? Yes COPD 9:01:58 Dentures? Yes PARTIAL IN TIGHT 9:02:00 Pre procedure: right dorsailis pedis pulse 2+ Normal; easily identifiable; not easily obliterated 9:02:02 Patient pain scale 0/10 ?. 9:02:24 IV patent on arrival in right wrist with 0.9% NaCl at KVO. 9:: Lab Result : BUN 25 mg/dl 9:: Lab Result : Creatinine 1.2 mg/dl 9:: Lab Result : Hemoglobin 14.4 g/dl 9:: Lab Result : Hematocrit 42.1 % 9:: Lab results completed and on chart. 9:04:35 Right groin area was prepped with chlora-prep and draped in sterile fashion 9:04:35 Alarms reviewed by R. N. 9:04:36 Sharps counted by scrub and verified by R.N. 9:04:38 Use device set Femoral Dx 9:04:39 ACIST Syringe (95535) opened to sterile field. 9:04:40 Bag Decanter (2002S) opened to sterile field. 9:04:40 Medline Cath Pack ([id number]) opened to sterile field. 9:04:42 ACIST Manifold (53589) opened to sterile field. 9:04:43 ACIST Hand Control (28813) opened to sterile field. 9:04:44 Tegaderm 4 x 4 (1626W) opened to sterile field. 9:05:12 DIAGNOSTIC Multipack 5Fr catheter set ([id number]) opened to sterile field. 9:05:14 DIAGNOSTIC WIRE .035 260cm J wire ([id number]) opened to sterile field. 9:05:17 SHEATH Prelude 5Fr 0.035 ([id number]) opened to sterile field. 9:05:55 Physician arrived 9:05:55 --------ALL STOP TIME OUT------ 9:05:55 Final Timeout: patient, procedure, and site verified with staff and physician. All members of the team are in agreement. 9:05:57 Right groin site verified by team. 9:06:01 Physical assessment completed. ASA score P 2 - A patient with mild systemic disease as per Randy Stewart MD. 9:06:04 Sedation plan: IV Moderate Sedation Medication:Versed, Fentanyl 9:06:55 Versed 1 mg I.V. was administered by Yamile Bustillo RN; for sedation; 9:07:01 Fentanyl 50 mcg I.V. was administered by Yamile Bustillo RN; for sedation; 9::18 Zero performed for pressure channel P1 9::25 Zero performed for pressure channel P1 9:12:13 Procedure started. 9:12:16 Local anesthetic to right femoral artery with Lidocaine 2% by Randy Stewart MD.INITIAL ACCESS ONLY 9:12:19 Versed 1 mg I.V. was administered by Yamile Bustillo RN; for sedation; 9::23 Fentanyl 50 mcg I.V. was administered by Yamile Bustillo RN; for sedation; 9:14:18 A 5 Fr sheath was inserted into the Right Femoral artery 9:14:22 A MULTIPACK JL 4.0 5Fr catheter was advanced over the wire and used for Procedure. 9:14:41 LCA angiography performed. 9:15:12 Catheter exchanged over wire. 9:15:50 A DIAGNOSTIC AR MOD 5Fr Catheter ([id number]) was advanced over the wire and used for Procedure. 9:16:54 SVG to RCA angiography performed. 9:17:46 SVG to LAD angiography performed. 9:19:03 GLIDE WIRE ANGLE 260cm ([id number]) opened to sterile field. 9:19:03 Catheter exchanged over wire. 9:19:28 A DIAGNOSTIC IM 5Fr catheter ([id number]) was advanced over the wire and used for Procedure. 9:21:11 LUONG to Circ angiography performed. 9:23:19 Catheter exchanged over wire. 9:23:28 A MULTIPACK 3DRC 5Fr catheter was advanced over the wire and used for Procedure. 9:24:21 RCA angiography performed. 9:25:03 Catheter exchanged over wire. 9:25:06 A MULTIPACK Pigtail 5 Fr catheter was advanced over the wire and used for Procedure. 9:26:06 LV gram done using JOHNSON 9:26:09 Injector settings: Ml/sec: 10, Volume: 20, 9:26:15 EF : 55 % 9:27:46 Aortic Root visualized 9:27:49 Catheter removed. 9:27:51 EXOSEAL 5Fr (EX500) opened to sterile field. 9:28:00 Sheath removed intact; hemostasis achieved with Exoseal to the Right Femoral artery. 9:28:02 Procedure ended.(Physican Out) 9:29:56 Fluoroscopy time 04.80 minutes. 9:30:03 Flurop Dose total: 917 9:30:03 Fluoroscopy dose: 917 mGy 9:30:08 Contrast amount:Isovue 300 95ml. 9:30:09 Sharps counted by scrub and verified by R.N. 9:30:11 Insertion/operative site no bleeding no hematoma. 9:30:13 Post-op/insertion site Right Femoral artery dressed using a 4 x 4 and Tegaderm. 9:30:16 Post right femoral artery:stable, soft, clean and dry 9:30:18 Post Procedure Pulses reassessed and unchanged 9:30:20 Post-procedure physical assessment completed. ASA score P 2 - A patient with mild systemic disease as per Randy Stewart MD. 9:30:42 Post procedure rhythm: unchanged. 9:30:46 Estimated blood loss: 5 ml 9:30:47 Post procedure instruction explained to patient.Patient verbalizes understanding. 9:30:48 Patient needs reinforcement of post procedure teaching. 9:32:02 Procedure type changed to Cath procedure, Diagnostic procedure, LHC, LHC w/Coronaries w/Grafts, Aortic Root Angiography, Sedation Charges, Moderate Sedation up to 15 minutes 9:34:01 Procedure and supply charges have been captured, reviewed, submitted and are correct. 9:34:04 Procedure Complication : No complications 9:34:06 Vital chart was stopped 9:34:11 See physician's report for complete and final results. 9:34:15 Report given to PCU. 9:34:17 Patient transfered to PCU with Stretcher. 9:34:19 Procedure ended. 9:34:19 Full Disclosure recording stopped 9:34:23 End room use (Document Last) Device Usage Item Name Manufacture Quantity Catalog Number Hospital Part Current M inimal Lot# / Charge Number Stock Stock Serial# Code ACIST Syringe Acist 1 52848 [id number] 160285 714141 2 0 (15520) [employer] Bag Decanter Microtek 1 475201 30235 783701 5 () [employer] Inc[employer] Medline Cath Cardinal 1 [id number] 607333 14025 243001 5 Pack Health ([id number]) ACIST Manifold Acist 1 16638 588636 869744 658633 5 (05798) [employer] ACIST Hand Acist 1 12486 154732 775525 542367 5 Control (21892) [employer] Tegaderm 4 x 4 3M 1 1626W 264400 587040 296371 5 (1626W) DIAGNOSTIC Cardinal 1 [id number] 623106 46944 177847 3 0 Multipack 5Fr Health catheter set ([id number]) DIAGNOSTIC WIRE St Yo 1 738390 847501 220060 154434 3 0 .035 260cm J wire (558835) SHEATH Prelude Merit 1 [id number] 564815 816285 894951 5 5Fr 0.035 Medical ([id number]-5X-46-035) MULTIPACK JL Cardinal 1 [id number] 5 4.0 5Fr Health catheter DIAGNOSTIC AR Cardinal 1 [id number] 866225 130651 315032 1 5 MOD 5Fr Health Catheter ([id number]) DIAGNOSTIC IM Cardinal 1 [id number] 939192 425017 316917 5 5Fr catheter Health ([id number]) MULTIPACK 3DRC Cardinal 1 355785 5 5Fr catheter Health MULTIPACK Cardinal 1 383948 5 Pigtail 5 Fr Health catheter EXOSEAL 5Fr Cardinal 1 EX500 632183 325079 503028 1 0 (EX500) Health GLIDE WIRE Terumo 1 [id number] 931268 852453 181741 5 ANGLE 260cm ([id number]) Signature Audit [place] Stage Time Signature Unsigned Intra-Procedure 06/07/2018 Preston Bowers 9:35:14 AM RT(R) Signatures Monitor : Preston Bowers RT Signature : Date : Time : [facility] [address] [place] [address]
[2018-06-05 11:03] LABS: BASOPHILS 0.3 % (0-2); EOSINOPHILS 3.5 % (0-7); HEMATOCRIT 49.5 % (42.0-54.0); HEMOGLOBIN 17.4 g/dL (13.5-17.5); IMMATURE GRANULOCYTES 0.1 % (0-5); LYMPHOCYTES 21.9 % (15-50); MCH 34.1 pg (26.0-34.0); MCHC 35.2 g/dL (31.0-37.0); MCV 96.9 fL (80.0-100.0); MEAN PLATELET VOLUME 10.7 fL (7.4-10.4); MONOCYTES 5.6 % (2-11); NEUTROPHILS 68.6 % (40-80); PLATELET COUNT 177 10x3/uL (130-400); RBC 5.11 10x6/uL (4.20-6.10); RDW 13.9 % (11.5-14.5); WBC 6.9 10x3/uL (4.8-10.8)
[2018-06-05 11:27] LABS: ALBUMIN 3.7 g/dL (3.4-5.0); ALKALINE PHOSPHATASE 116 U/L (46-116); ALT (SGPT) 20 U/L (10-68); BILIRUBIN - TOTAL 0.94 mg/dL (0.2-1.3); CALC OSMOLALITY 287 mosm/kg (275-300); CARBON DIOXIDE 25.4 mmol/L (21.0-32.0); CHLORIDE - SERUM 107 mmol/L (98-107); CKMB 0.5 U/L (0.0-3.6); CREATINE KINASE 90 UL (21-232); CREATININE - SERUM 1.4 mg/dL (0.6-1.3); GLUCOSE 116 mg/dL (74-106); PRO BNP 337 pg/mL (0-450); PROTEIN - SERUM 7.9 g/dL (6.4-8.2); SODIUM 143 mmol/L (136-145); TROPONIN-I < 0.017 ng/mL (0.000-0.060); UREA NITROGEN 17 mg/dL (7-18); eGFR NON AFRICAN AMERICAN 51 mL/min (90-120)
[2018-06-05 17:23] LABS: CKMB 0.8 U/L (0.0-3.6); CREATINE KINASE 66 UL (21-232); TROPONIN-I < 0.017 ng/mL (0.000-0.060)
[2018-06-05] MEDS ORDERED: ZYLOPRIM100 MG PO ×2 (18:10→18:16)
[2018-06-05] MEDS ORDERED: TOPROL XL50 MG PO (18:11)
[2018-06-05] MEDS ORDERED: ELIQUIS2.5 MG PO (18:12)
[2018-06-05] MEDS ORDERED: BREO ELLIPTA 21 EACH (18:15)
[2018-06-05] MEDS ORDERED: SINGULAIR10 MG PO (18:17)
[2018-06-06] VITALS: BP 113/62
[2018-06-06 00:41] LABS: CKMB 0.7 U/L (0.0-3.6); CREATINE KINASE 70 UL (21-232); TROPONIN-I < 0.017 ng/mL (0.000-0.060)
[2018-06-06 04:00] VITALS: BP 112/75
[2018-06-06 05:10] LABS: BASOPHILS 0.2 % (0-2); EOSINOPHILS 4.6 % (0-7); HEMATOCRIT 44.3 % (42.0-54.0); HEMOGLOBIN 15.3 g/dL (13.5-17.5); MCH 33.4 pg (26.0-34.0); MCHC 34.5 g/dL (31.0-37.0); MCV 96.7 fL (80.0-100.0); MEAN PLATELET VOLUME 10.4 fL (7.4-10.4); MONOCYTES 9.4 % (2-11); NEUTROPHILS 61.8 % (40-80); PLATELET COUNT 161 10x3/uL (130-400); RBC 4.58 10x6/uL (4.20-6.10); RDW 14.1 % (11.5-14.5); WBC 6.3 10x3/uL (4.8-10.8)
[2018-06-06 05:25] LABS: CALCIUM 8.4 mg/dL (8.5-10.1); CARBON DIOXIDE 27.1 mmol/L (21.0-32.0); CREATININE - SERUM 1.2 mg/dL (0.6-1.3); POTASSIUM - SERUM 4.1 mmol/L (3.5-5.1)
[2018-06-06 08:43] VITALS: BP 150/92
[2018-06-06 09:08] VITALS: Ht 180.3 cm; Wt 107.3 kg
[2018-06-06 11:19] VITALS: BP 146/86
[2018-06-06 15:27] VITALS: BP 136/77
[2018-06-06 20:00] VITALS: BP 107/82
[2018-06-07] VITALS: BP 106/62
[2018-06-07 04:00] VITALS: BP 104/59
[2018-06-07 04:56] LABS: BASOPHILS 0.2 % (0-2); EOSINOPHILS 5.1 % (0-7); HEMATOCRIT 42.1 % (42.0-54.0); HEMOGLOBIN 14.4 g/dL (13.5-17.5); IMMATURE GRANULOCYTES 0.4 % (0-5); LYMPHOCYTES 26.9 % (15-50); MCHC 34.2 g/dL (31.0-37.0); MCV 96.3 fL (80.0-100.0); MEAN PLATELET VOLUME 10.9 fL (7.4-10.4); MONOCYTES 9.9 % (2-11); NEUTROPHILS 57.5 % (40-80); PLATELET COUNT 157 10x3/uL (130-400); RBC 4.37 10x6/uL (4.20-6.10); WBC 5.7 10x3/uL (4.8-10.8)
[2018-06-07 05:15] LABS: ANION GAP 11.8 mmol/L (8-16); CARBON DIOXIDE 28.2 mmol/L (21.0-32.0); CREATININE - SERUM 1.2 mg/dL (0.6-1.3)
[2018-06-07 08:47] VITALS: BP 116/79
[2018-06-07 13:06] VITALS: BP 127/82
[2018-06-07 20:29] VITALS: BP 115/68
[2018-06-08 01:05] VITALS: BP 118/67
[2018-06-08 05:10] VITALS: BP 105/56
[2018-06-08 05:49] LABS: BASOPHILS 0.2 % (0-2); HEMATOCRIT 43.1 % (42.0-54.0); HEMOGLOBIN 14.8 g/dL (13.5-17.5); IMMATURE GRANULOCYTES 0.2 % (0-5); LYMPHOCYTES 21.9 % (15-50); MCH 33.5 pg (26.0-34.0); MCHC 34.3 g/dL (31.0-37.0); MCV 97.5 fL (80.0-100.0); MEAN PLATELET VOLUME 11.1 fL (7.4-10.4); MONOCYTES 10.2 % (2-11); NEUTROPHILS 62.5 % (40-80); PLATELET COUNT 148 10x3/uL (130-400); RBC 4.42 10x6/uL (4.20-6.10); RDW 14.1 % (11.5-14.5); WBC 5.8 10x3/uL (4.8-10.8)
[2018-06-08 06:11] LABS: ANION GAP 9.2 mmol/L (8-16); CALCIUM 8.3 mg/dL (8.5-10.1); CARBON DIOXIDE 29.4 mmol/L (21.0-32.0); CREATININE - SERUM 1.2 mg/dL (0.6-1.3); POTASSIUM - SERUM 4.6 mmol/L (3.5-5.1)
[2018-06-08] MEDS ORDERED: ISOSORBIDE MONO30 M1 PO (07:17)
[2018-06-08] MEDS ORDERED: SINGULAIR10 MG PO (07:18)
[2018-06-08] MEDS ORDERED: LEXAPRO5 MG PO (07:18)
[2018-06-08] MEDS ORDERED: BREO ELLIPTA 11 EACH INH (07:18)
[2018-06-08 08:36] VITALS: BP 121/71
== END 2018-06-08 11:44 | disposition home or self-care (01) ==
LOC: D.ER 10:45 → OBSVTIME 15:58 → D.EDHOLD 15:58 → D.M2 15:58
PROVIDERS: Family Medicine
DX: R07.9 Chest pain, unspecified (principal); I25.10 Atherosclerotic heart disease of native coronary artery without angina pectoris; Z95.1 Presence of aortocoronary bypass graft; Z87.891 Personal history of nicotine dependence; I10 Essential (primary) hypertension; I48.2 Chronic atrial fibrillation; J44.9 Chronic obstructive pulmonary disease, unspecified; I45.10 Unspecified right bundle-branch block

== ENCOUNTER → 2019-02-01 09:43 | Outpatient (CLI) | payer MEDICARE, BC ==
[2018-06-06 09:08] VITALS: BMI 33.4
[~2019-02-01 09:43] MED LIST changes: +BREO ELLIPTA 11 EACH INH; +ISOSORBIDE MONO30 M1 PO; +LEXAPRO5 MG PO; +TOPROL XL50 MG PO
== END | disposition home or self-care (01) ==
LOC: D.RT 09:43
PROVIDERS: ATTEND Internal Medicine Pulmonary Disease
DX: J44.1 Chronic obstructive pulmonary disease with (acute) exacerbation (principal)

== ENCOUNTER → 2019-05-23 12:44 | Outpatient (CLI) | payer MEDICARE, BC ==
[2018-06-06 09:08] VITALS: BMI 33.4
== END | disposition home or self-care (01) ==
LOC: D.RT 12:44
PROVIDERS: ATTEND Internal Medicine Pulmonary Disease
DX: J44.9 Chronic obstructive pulmonary disease, unspecified (principal)

== ENCOUNTER 2019-12-01 22:52 | Emergency (ER) | payer MEDICARE, BC ==
[~2019-12-01] VITALS: Ht 180.3 cm; Wt 107.2 kg
[2019-12-01 23:04] VITALS: Ht 180.3 cm; Wt 107.2 kg
[2019-12-01] MEDS ORDERED: BREO ELLIPTA 21 EACH (23:13)
[2019-12-01] MEDS ORDERED: ALBUTEROL SULF8.5 GM INH (23:13)
[2019-12-01 23:18] LABS: BASOPHILS 0.4 % (0-2); EOSINOPHILS 3.6 % (0-7); HEMATOCRIT 42.7 % (42.0-54.0); HEMOGLOBIN 14.6 g/dL (13.5-17.5); IMMATURE GRANULOCYTES 0.3 % (0-5); LYMPHOCYTES 25.3 % (15-50); MCH 32.7 pg (26.0-34.0); MCHC 34.2 g/dL (31.0-37.0); MCV 95.7 fL (80.0-100.0); MEAN PLATELET VOLUME 10.3 fL (7.4-10.4); MONOCYTES 9.3 % (2-11); NEUTROPHILS 61.1 % (40-80); PLATELET COUNT 177 10x3/uL (130-400); RBC 4.46 10x6/uL (4.20-6.10); RDW 14.1 % (11.5-14.5)
[2019-12-01 23:28] LABS: CALC OSMOLALITY 275 mosm/kg (275-300); CALCIUM 8.7 mg/dL (8.5-10.1); CARBON DIOXIDE 26.2 mmol/L (21.0-32.0); CHLORIDE - SERUM 104 mmol/L (98-107); CREATININE - SERUM 1.3 mg/dL (0.6-1.3); GLUCOSE 103 mg/dL (74-106); POTASSIUM - SERUM 4.1 mmol/L (3.5-5.1); SODIUM 136 mmol/L (136-145); UREA NITROGEN 24 mg/dL (7-18); eGFR NON AFRICAN AMERICAN 55 mL/min (90-120)
[2019-12-01 23:30] LABS: INR 1.09 (0.85-1.17)
[2019-12-01 23:43] LABS: ALBUMIN 3.6 g/dL (3.4-5.0); ALKALINE PHOSPHATASE 107 U/L (46-116); ALT (SGPT) 23 U/L (10-68); BILIRUBIN - TOTAL 0.41 mg/dL (0.2-1.3); CREATINE KINASE 61 UL (21-232); PROTEIN - SERUM 7.4 g/dL (6.4-8.2); THYROID STIMULATING HORMONE 2.88 uIU/mL (0.36-3.74); TROPONIN-I < 0.017 ng/mL (0.000-0.060)
[2019-12-02 00:35] VITALS: BP 146/73
== END 2019-12-02 00:38 | disposition short-term general hospital (02) ==
LOC: D.ER 22:52
PROVIDERS: Family Medicine
DX: I63.9 Cerebral infarction, unspecified (principal); I25.10 Atherosclerotic heart disease of native coronary artery without angina pectoris; Z95.1 Presence of aortocoronary bypass graft; I48.91 Unspecified atrial fibrillation; I10 Essential (primary) hypertension

== ENCOUNTER 2021-01-30 11:34 | Emergency (ER) | payer MEDICARE, BC ==
[~2021-01-30] VITALS: Ht 180.3 cm; Wt 89.5 kg
[~2021-01-30 11:34] MED LIST changes: +ALBUTEROL SULF8.5 GM INH
[2021-01-30 11:45] VITALS: BP 111/62; Ht 180.3 cm; Wt 89.5 kg
[2021-01-30] MEDS ORDERED: ELIQUIS2.5 MG PO (11:47)
[2021-01-30] MEDS ORDERED: LASIX40 MG PO (11:48)
[2021-01-30] MEDS ORDERED: METOLAZONE2.5 MG PO (11:49)
[2021-01-30] MEDS ORDERED: KLOR-CON 1010 MEQ PO (11:49)
[2021-01-30] MEDS ORDERED: ALBUTEROL SULF8.5 GM INH (11:50)
[2021-01-30] MEDS ORDERED: BREO ELLIPTA 11 EACH INH (11:50)
[2021-01-30] MEDS ORDERED: MUCINEX600 MG PO (11:50)
[2021-01-30 13:06] LABS: BASOPHILS 0.2 % (0-2); EOSINOPHILS 1.9 % (0-7); HEMATOCRIT 44.5 % (42.0-54.0); HEMOGLOBIN 15.2 g/dL (13.5-17.5); IMMATURE GRANULOCYTES 0.2 % (0-5); MCH 33.3 pg (26.0-34.0); MCHC 34.2 g/dL (31.0-37.0); MCV 97.6 fL (80.0-100.0); MEAN PLATELET VOLUME 10.4 fL (7.4-10.4); MONOCYTES 8.9 % (2-11); NEUTROPHIL ABS# 4.41 10x3/uL (1.78-5.38); NEUTROPHILS 69.8 % (40-80); PLATELET COUNT 143 10x3/uL (130-400); RBC 4.56 10x6/uL (4.20-6.10); WBC 6.3 10x3/uL (4.8-10.8)
[2021-01-30 13:19] LABS: APTT 31.5 SECONDS (22.8-39.4); INR 1.36 (0.85-1.17); PROTIME 15.6 SECONDS (11.6-15.0)
[2021-01-30 13:36] LABS: ALBUMIN 3.5 g/dL (3.4-5.0); ALKALINE PHOSPHATASE 140 U/L (30-120); ALT (SGPT) 29 U/L (10-68); BILIRUBIN - TOTAL 1.13 mg/dL (0.2-1.3); CALC OSMOLALITY 284 mosm/kg (275-300); CALCIUM 9.6 mg/dL (8.5-10.1); CARBON DIOXIDE 32.6 mmol/L (21.0-32.0); CHLORIDE - SERUM 97 mmol/L (98-107); CKMB 0.8 U/L (0.0-3.6); CREATINE KINASE 34 UL (21-232); CREATININE - SERUM 1.4 mg/dL (0.6-1.3); GLUCOSE 93 mg/dL (74-106); PROTEIN - SERUM 7.5 g/dL (6.4-8.2); SODIUM 136 mmol/L (136-145); TROPONIN-I 0.036 ng/mL (0.000-0.060); UREA NITROGEN 50 mg/dL (7-18); eGFR NON AFRICAN AMERICAN 51 mL/min (90-120)
[2021-01-30 13:42] LABS: POTASSIUM - SERUM 2.8 mmol/L (3.5-5.1)
[2021-01-30] MEDS ORDERED: ADOXA100 MG PO (13:45)
== END 2021-01-30 15:00 | disposition home or self-care (01) ==
LOC: D.ER 11:34
PROVIDERS: Family Medicine
DX: F07.81 Postconcussional syndrome (principal); R51.9 Headache, unspecified; E87.6 Hypokalemia; R91.8 Other nonspecific abnormal finding of lung field; I50.9 Heart failure, unspecified; J44.9 Chronic obstructive pulmonary disease, unspecified

== ENCOUNTER 2021-01-31 12:00 | Emergency (ER) | payer MEDICARE, BC ==
[~2021-01-31] VITALS: Ht 180.3 cm; Wt 91.4 kg
[~2021-01-31 12:00] MED LIST changes: +ADOXA100 MG PO; +KLOR-CON 1010 MEQ PO; +LASIX40 MG PO; +METOLAZONE2.5 MG PO; +MUCINEX600 MG PO
[2021-01-31 12:26] VITALS: Ht 180.3 cm; Wt 91.4 kg
[2021-01-31 13:37] VITALS: BP 120/71
== END 2021-01-31 13:48 | disposition home or self-care (01) ==
LOC: D.ER 12:00
DX: F07.81 Postconcussional syndrome (principal); I50.9 Heart failure, unspecified; J44.9 Chronic obstructive pulmonary disease, unspecified